=== PATIENT | female | born 1990 | race Hispanic/Latino ===

== ENCOUNTER 2017-11-26 18:53 | Emergency (ER) | payer SELFPAY ==
[2017-11-26 19:48] LABS: Urine Amorphous Sediment 2+ /HPF (NONE SEEN); Urine Bacteria 20-50 /HPF (<20); Urine Culture Reflex Order REFLEXED; Urine Mucus 2+ /HPF (NONE SEEN); Urine RBC <5 /HPF (NONE SEEN)
[2017-11-26 19:48] LABS: Urine Blood NEGATIVE (NEG); Urine Glucose NEGATIVE (NEG); Urine Protein 1+ (NEG)
--- NOTE | 2017-11-26 20:39 | ER ---
Nurse's Notes [facility] Name: Tracy Gannon Age: 27 yrs Sex: Female : 1990 Arrival Date: 11/26/2017 Time: 18:57 Bed 6 Private MD: Diagnosis: Vaginitis, vulvitis and vulvovaginitis in diseases classified elsewhere;Cystitis Presentation: 11/26 19:07 Presenting complaint: Patient states: Vaginal discharge x 3 days, states smell getting lp1 worse; Denies any bleeding; Denies any pain with urination, frequency. Transition of care: patient was not received from another setting of care. Onset of symptoms was November 23, 2017. Care prior to arrival: None. 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 - Social history:: Smoking status: Patient/guardian denies using tobacco. Screenin:10 Abuse screen: Denies threats or abuse. Denies injuries from another. Nutritional lp1 screening: No deficits noted. Tuberculosis screening: No symptoms or risk factors identified. Fall Risk None identified. Assessment: 19:35 General: Appears in no apparent distress. uncomfortable, Behavior is cooperative, bs1 anxious. Pain: Denies pain. 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 Gait is steady, Speech is normal, Facial symmetry appears normal, Pupils are PERRLA. Cardiovascular: Denies chest pain, palpitations, shortness of breath, Heart tones S1 S2 present Capillary refill < 3 seconds Patient's skin is warm and dry. Respiratory: Airway is patent Trachea midline Respiratory effort is even, unlabored, Respiratory pattern is regular, symmetrical, Breath sounds are clear bilaterally. GI: Abdomen is round Bowel sounds present X 4 quads. Abd is soft and non tender X 4 quads. : Reports discharge, white, w/ foul odor. EENT: No deficits noted. No signs and/or symptoms were reported regarding the EENT system. Derm: No deficits noted. No signs and/or symptoms reported regarding the dermatologic system. Musculoskeletal: Circulation, motion, and sensation intact. Capillary refill < 3 seconds, Range of motion: intact in all extremities. 20:35 Reassessment: Patient appears in no apparent distress at this time. Patient and/or bs1 family updated on plan of care and expected duration. Pain level reassessed. Patient is alert, oriented x 3, equal unlabored respirations, skin warm/dry/pink. Vital Signs: 19:09 BP 138 / 83; Pulse 92; Resp 16; Temp 98.5(O); Pulse Ox 100% on R/A; Weight 63.05 kg; lp1 Height 5 ft. 2 in. (157.48 cm); Pain 0/10; 19:53 BP 113 / 73; Pulse 87; Resp 17; Pulse Ox 99% on R/A; Pain 0/10; bs1 19:09 Body Mass Index 25.42 (63.05 kg, 157.48 cm) lp1 ED Course: 18:57 Patient arrived in ED. rg4 19:08 Triage completed. lp1 19:08 Arm band placed on right wrist. lp1 19:10 Lj Centeno MD is Attending Physician. 19:14 Chandrika Trejo, GAEL is Primary Nurse. bs1 19:38 Patient has correct armband on for positive identification. Bed in low position. Call bs1 light in reach. Side rails up X 1. Pulse ox on. NIBP on. 19:38 No provider procedures requiring assistance completed. Patient did not have IV access bs1 during this emergency room visit. Administered Medications: No medications were administered Outcome: 20:39 Discharge ordered by . gs 20:50 Discharged to home ambulatory, with friend. bs1 20:50 Condition: stable 20:50 Discharge instructions given to patient, Instructed on discharge instructions, follow up and referral plans. medication usage, Demonstrated understanding of instructions, follow-up care, medications, Prescriptions given X 1, Macrobid, Patient understands to follow up with obgyn tomorrow. 20:52 Patient left the ED. bs1 Addendum: 12/01/2017 18:40 Addendum: Culture Results: Positive urine culture. Bacteria is resistant to, has i w intermediate sensitivity, or is not tested against prescribed antibiotics. 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 Phone call Attempt #1 pt did not answer, left voice mail. 18:47 Addendum: Culture Results: Phone call Attempt #2 pt called back, is now asymptomatic i w and has f/u appt on . Signatures: Avelina Peralta, RN RN iw Viviana Yousif, RN RN lp1 Lynnette Pierce rg4 Lj Centeno MD MD Chandrika Trejo RN RN bs1
--- NOTE | 2017-11-26 20:39 | EDPHYS ---
Physician Documentation [facility] Name: Tracy Gannon Age: 27 yrs Sex: Female : 1990 Arrival Date: 11/26/2017 Time: 18:57 Bed 6 Private MD: ED Physician Lj Centeno HPI: 11/26 20:33 This 27 yrs old Female presents to ER via Ambulatory with complaints of gs Vaginal Discharge, 13 WKS . 20:33 The patient presents with vaginal discharge, that is white discharge. Onset: The gs symptoms/episode began/occurred 3 day(s) ago. Modifying factors: The symptoms are alleviated by nothing, the symptoms are aggravated by nothing. Associated signs and symptoms: Pertinent negatives: cramping, dyspareunia, fever, vaginal bleeding, vaginal discharge. Severity of symptoms: At their worst the symptoms were mild, in the emergency department the symptoms are unchanged. 13 weeks preg, had appt today for same with OB chose not to make appt, her for eval. 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 - Social history:: Smoking status: Patient/guardian denies using tobacco. ROS: 20:33 All other systems are negative. gs Exam: 20:33 Head/Face: Normocephalic, atraumatic. Eyes: Pupils equal round and reactive to light, gs extra-ocular motions intact. Lids and lashes normal. Conjunctiva and sclera are non-icteric and not injected. Cornea within normal limits. Periorbital areas with no swelling, redness, or edema. ENT: Nares patent. No nasal discharge, no septal abnormalities noted. Tympanic membranes are normal and external auditory canals are clear. Oropharynx with no redness, swelling, or masses, exudates, or evidence of obstruction, uvula midline. Mucous membranes moist. Neck: Trachea midline, no thyromegaly or masses palpated, and no cervical lymphadenopathy. Supple, full range of motion without nuchal rigidity, or vertebral point tenderness. No Meningismus. Chest/axilla: Normal chest wall appearance and motion. Nontender with no deformity. No lesions are appreciated. Cardiovascular: Regular rate and rhythm with a normal S1 and S2. No gallops, murmurs, or rubs. Normal PMI, no JVD. No pulse deficits. Respiratory: Lungs have equal breath sounds bilaterally, clear to auscultation and percussion. No rales, rhonchi or wheezes noted. No increased work of breathing, no retractions or nasal flaring. Abdomen/GI: Soft, non-tender, with normal bowel sounds. No distension or tympany. No guarding or rebound. No evidence of tenderness throughout. Back: No spinal tenderness. No costovertebral tenderness. Full range of motion. Skin: Warm, dry with normal turgor. Normal color with no rashes, no lesions, and no evidence of cellulitis. MS/ Extremity: Pulses equal, no cyanosis. Neurovascular intact. Full, normal range of motion. Neuro: Awake and alert, GCS 15, oriented to person, place, time, and situation. Cranial nerves II-XII grossly intact. Motor strength 5/5 in all extremities. Sensory grossly intact. Cerebellar exam normal. Normal gait. 20:33 Constitutional: The patient appears alert, awake. Vital Signs: 19:09 BP 138 / 83; Pulse 92; Resp 16; Temp 98.5(O); Pulse Ox 100% on R/A; Weight 63.05 kg; lp1 Height 5 ft. 2 in. (157.48 cm); Pain 0/10; 19:53 BP 113 / 73; Pulse 87; Resp 17; Pulse Ox 99% on R/A; Pain 0/10; bs1 19:09 Body Mass Index 25.42 (63.05 kg, 157.48 cm) lp1 MDM: 19:22 Patient medically screened. gs 20:33 Differential diagnosis: urinary tract infection, vaginitis. Data reviewed: vital signs, gs nurses notes. Response to treatment: There is no appreciated change of the patient's symptoms at this time. ED course: spoke with l and d resident at [facility] chad has called [facility] will call tomorrow for appt tomorrow will treat uti. 11/26 19:23 Order name: Urine Microscopic Only; Complete Time: 20:32 11/26 19:33 Order name: Urine Dipstick--Ancillary (enter results); Complete Time: 20:32 [facility] 11/26 19:23 Order name: Urine Test (obtain specimen); Complete Time: 19:31 11/26 19:23 Order name: Urine Dipstick-Ancillary (obtain specimen); Complete Time: 19:31 11/26 19:33 Order name: Urine --Ancillary (enter results); Complete Time: 20:32 [facility] 11/26 19:50 Order name: Urine Culture EDMS Administered Medications: No medications were administered Disposition: 11/26/17 20:39 Discharged to Home. Impression: Vaginitis, vulvitis and vulvovaginitis in diseases classified elsewhere, Cystitis. - Condition is Stable. - Discharge Instructions: Urinary Tract Infection. - Prescriptions for Macrobid 100 mg Oral Capsule - take 1 capsule by ORAL route every 12 hours for 5 days; 10 capsule. - Medication Reconciliation Form, Thank You Letter, Antibiotic Education, Prescription Opioid Use, Work release form form. - Follow up: Private Physician; When: Tomorrow; Reason: Re-evaluation by your physician. Signatures: Dispatcher [employer] EDMS Viviana Yousif RN RN lp1 Lj Centeno MD MD gs Salazar, Brittany RN RN bs1
[2017-11-26 20:56] VITALS: TEMP 98.5
[2017-11-26 20:57] VITALS: BP 113/73; O2SAT 99
== END 2017-11-26 20:52 | disposition home or self-care (01) ==
LOC: ER 18:53
DX: O23.11 Infections of bladder in pregnancy, first trimester (principal); Z3A.13 13 weeks gestation of pregnancy
CPT/HCPCS: 81003; 81015; 81025; 87077; 87086; 87088; 87186; 99283

== ENCOUNTER 2018-04-19 01:22 | Emergency (ER) | payer SELFPAY ==
[2018-04-19 01:59] LABS: Absolute Lymphocytes (CBC) 2.2 K/uL (0.7-4.9); Absolute Monocytes 0.9 K/uL (0.1-1.3); Absolute Neutrophil 5.4 K/uL (1.8-8.0); Basophils % 0.3 % (0-1.3); Eosinophils % 1.2 % (0-4.4); Hematocrit 27.7 % (36.0-45.0); Lymphocytes % 25.7 % (15.3-44.8); MCH 24.2 pg (27.0-35.0); MCV 74.9 fL (80-100); MPV 9.5 fL (7.6-11.3); Monocytes % 10.1 % (3.3-12.3)
[2018-04-19 02:11] LABS: BUN Blood Urea Nitrogen 8 mg/dL (7-18); Bicarbonate 24 mmol/L (21-32); Glucose Level 109 mg/dL (74-106); Potassium 3.3 mmol/L (3.5-5.1); Sodium Level 141 mmol/L (136-145)
[2018-04-19 02:16] LABS: Urine Bacteria <20 /HPF (<20); Urine RBC NONE SEEN /HPF (NONE SEEN)
[2018-04-19 02:17] LABS: Urine Amorphous Sediment 1+ /HPF (NONE SEEN); Urine Culture Reflex Order NOT NEEDED; Urine Mucus LIGHT /HPF (NONE SEEN)
--- NOTE | 2018-04-19 02:26 | EDPHYS ---
Physician Documentation [facility] Name: Tracy Gannon Age: 28 yrs Sex: Female : 1990 Arrival Date: 04/19/2018 Time: 01:23 Bed 5 Private MD: ED Physician Jaxon Thomas HPI: 04/19 01:41 This 28 yrs old Female presents to ER via Ambulatory with complaints of rn Breathing Difficulty. 01:41 The patient has shortness of breath at rest. Onset: The symptoms/episode began/occurred rn 3 hour(s) ago. Duration: The symptoms are intermittent. The patient's shortness of breath is aggravated by light activity, sitting upright. Severity of symptoms: At their worst the symptoms were mild in the emergency department the symptoms are unchanged. The patient has not experienced similar symptoms in the past. Reports 8 months , woke up tonight with sob, has never happened to her before, no fever/cough/chest pain/pleuritic pain, worse when sits up, feels like can't take deep enough breath, no abd pain, no bleeding. . 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 - Social history:: Smoking status: Patient/guardian denies using tobacco, Patient/guardian denies using alcohol, street drugs. - Ebola Screening: : Patient negative for fever greater than or equal to 101.5 degrees Fahrenheit, and additional compatible Ebola Virus Disease symptoms Patient denies exposure to infectious person Patient denies travel to an Ebola-affected area in the 21 days before illness onset. - Family history:: not pertinent. - Hospitalizations: : No recent hospitalization is reported. ROS: 01:41 Constitutional: Negative for fever, chills, and weight loss, Eyes: Negative for injury, rn pain, redness, and discharge, Neck: Negative for injury, pain, and swelling, Cardiovascular: Negative for chest pain, palpitations, and edema, Respiratory: + sob, neg for cough/hemoptysis/pleuritic pain Abdomen/GI: Negative for abdominal pain, nausea, vomiting, diarrhea, and constipation, MS/Extremity: Negative for injury and deformity, Skin: Negative for injury, rash, and discoloration, Neuro: Negative for headache, weakness, numbness, tingling, and seizure. Exam: 01:41 Constitutional: This is a well developed, well nourished patient who is awake, alert, rn and in no acute distress. Walked to room from triage without distress, smiling and texting on phone. Head/Face: Normocephalic, atraumatic. Eyes: Pupils equal round and reactive to light, extra-ocular motions intact. Lids and lashes normal. Conjunctiva and sclera are non-icteric and not injected. Cornea within normal limits. Periorbital areas with no swelling, redness, or edema. ENT: MMM, no stridor Cardiovascular: Regular rate and rhythm with a normal S1 and S2. No gallops, murmurs, or rubs. Normal PMI, no JVD. No pulse deficits. Respiratory: Lungs have equal breath sounds bilaterally, clear to auscultation and percussion. No rales, rhonchi or wheezes noted. No increased work of breathing, no retractions or nasal flaring. Abdomen/GI: pregnany abdomen, nontender Skin: Warm, dry with normal turgor. Normal color with no rashes, no lesions, and no evidence of cellulitis. MS/ Extremity: Pulses equal, no cyanosis. Neurovascular intact. Full, normal range of motion. Equal circumference. Neuro: Awake and alert, GCS 15, oriented to person, place, time, and situation. Cranial nerves II-XII grossly intact. Motor strength 5/5 in all extremities. Sensory grossly intact. Cerebellar exam normal. Normal gait. 01:52 ECG was reviewed by the Attending Physician. rn Vital Signs: 01:36 BP 112 / 77; Pulse 90; Resp 12; Temp 98.4(O); Pulse Ox 100% on R/A; Weight 65.77 kg ao (R); Height 5 ft. 2 in. (157.48 cm) (R); Pain 2/10; 02:13 BP 111 / 72; Pulse 90; Pulse Ox 98% on R/A; ak1 01:36 Body Mass Index 26.52 (65.77 kg, 157.48 cm) ao MDM: 01:26 Patient medically screened. rn 02:20 Differential diagnosis: Anemia Anxiety Reaction pneumonia, Pneumothorax reactive airway rn disease. Data reviewed: vital signs, nurses notes, lab test result(s), EKG, radiologic studies, plain films, and as a result, I will discharge patient. Counseling: I had a detailed discussion with the patient and/or guardian regarding: the historical points, exam findings, and any diagnostic results supporting the discharge/admit diagnosis, lab results, radiology results, the need for outpatient follow up, to return to the emergency department if symptoms worsen or persist or if there are any questions or concerns that arise at home. Response to treatment: the patient's symptoms have mildly improved after treatment, and as a result, I will discharge patient. Special discussion: I discussed with the patient/guardian in detail that at this point there is no indication for admission to the hospital. It is understood, however, that if the symptoms persist or worsen the patient needs to return immediately for re-evaluation. ED course: Pt with slightly decreased hemoglobin, may combine with enlarged uterus and causing relative dyspnea, oxygen 100%, speaking full sentences, not tachycardic, normal trop and ECG.. 04/19 01:40 Order name: CBC with Diff; Complete Time: 02:05 04/19 01:40 Order name: Basic Metabolic Panel; Complete Time: 02:17 04/19 01:40 Order name: EKG; Complete Time: 01:41 04/19 01:40 Order name: Urine Microscopic Only; Complete Time: 02:17 04/19 01:40 Order name: XRAY Chest (1 view) 04/19 02:19 Order name: Urine Dipstick--Ancillary (enter results) ne 04/19 01:40 Order name: IV Start; Complete Time: 01:48 04/19 01:40 Order name: EKG - Nurse/Tech; Complete Time: 01:48 04/19 01:40 Order name: Urine Dipstick-Ancillary (obtain specimen); Complete Time: 01:40 rn EC:52 Rate is 92 beats/min. Rhythm is regular. QRS Sawyer is Normal. WI interval is normal. QRS rn interval is normal. QT interval is normal. No Q waves. T waves are Normal. No ST changes noted. Clinical impression: Normal ECG. Interpreted by me. Administered Medications: No medications were administered Disposition: 04/19/18 02:25 Discharged to Home. Impression: Dyspnea, unspecified, Anemia complicating , third trimester. - Condition is Stable. - Discharge Instructions: Anemia, Nonspecific, Shortness of Breath, Third Trimester of , [id number]. - Medication Reconciliation Form, Thank You Letter, Antibiotic Education, Prescription Opioid Use, Work release form form. - Follow up: Private Physician; When: As needed; Reason: Recheck today's complaints, Re-evaluation by your physician. - Problem is new. - Symptoms have improved. Signatures: Dispatcher [employer] EDMS Jaxon Thomas MD MD rn Krenek, Amber RN RN ak1 Henrik Newsome RN RN ao Corrections: (The following items were deleted from the chart) 02:41 02:25 04/19/2018 02:25 Discharged to Home. Impression: Dyspnea, unspecified; Anemia ak1 complicating , third trimester. Condition is Stable. Discharge Instructions: Anemia, Nonspecific, Shortness of Breath, Third Trimester of , [id number]. Forms are Medication Reconciliation Form, Thank You Letter, Antibiotic Education, Prescription Opioid Use. Follow up: Private Physician; When: As needed; Reason: Recheck today's complaints, Re-evaluation by your physician. Problem is new. Symptoms have improved. rn
--- NOTE | 2018-04-19 02:26 | ER ---
Nurse's Notes [facility] Name: Tracy Gannon Age: 28 yrs Sex: Female : 1990 Arrival Date: 04/19/2018 Time: 01:23 Bed 5 Private MD: Diagnosis: Dyspnea, unspecified;Anemia complicating , third trimester Presentation: 04/19 01:33 Presenting complaint: Patient states: Difficulty breathing for the past three hours. ao Patient is about 33 weeks . Patient report never had this problem with previous pregnancies. Patient reports 2/10 pain in her right rib cage. Transition of care: patient was not received from another setting of care. Onset of symptoms was April 18, 2018 at 22:00. Risk Assessment: Do you want to hurt yourself or someone else? Patient reports no desire to harm self or others. Initial Sepsis Screen: Does the patient meet any 2 criteria? No. Patient's initial sepsis screen is negative. Does the patient have a suspected source of infection? No. Patient's initial sepsis screen is negative. Care prior to arrival: None. 01:33 Method Of Arrival: Ambulatory ao 01:33 Acuity: TERESA 3 ao Triage Assessment: 01:40 General: Appears in no apparent distress. comfortable, Behavior is calm, cooperative, ao appropriate for age. Respiratory: Reports shortness of breath Onset: The symptoms/episode began/occurred just prior to arrival, the patient has moderate shortness of breath. 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 - Social history:: Smoking status: Patient/guardian denies using tobacco, Patient/guardian denies using alcohol, street drugs. - Ebola Screening: : Patient negative for fever greater than or equal to 101.5 degrees Fahrenheit, and additional compatible Ebola Virus Disease symptoms Patient denies exposure to infectious person Patient denies travel to an Ebola-affected area in the 21 days before illness onset. - Family history:: not pertinent. - Hospitalizations: : No recent hospitalization is reported. Screenin:40 Abuse screen: Denies threats or abuse. Denies injuries from another. Nutritional ao screening: No deficits noted. Tuberculosis screening: No symptoms or risk factors identified. Fall Risk None identified. Assessment: 01:38 General: Appears in no apparent distress. comfortable, Behavior is calm, cooperative, ao appropriate for age. Pain: Complains of pain in right rib cage Pain currently is 2 out of 10 on a pain scale. Neuro: Level of Consciousness is awake, alert, obeys commands, Oriented to person, place, time, situation, Appropriate for age Moves all extremities. Full function Speech is normal, Facial symmetry appears normal. Cardiovascular: Capillary refill < 3 seconds Patient's skin is warm and dry. Rhythm is regular. Respiratory: Airway is patent Respiratory effort is even, unlabored, Respiratory pattern is regular, symmetrical, Breath sounds are clear bilaterally. GI: Abdomen is Patient . : No signs and/or symptoms were reported regarding the genitourinary system. EENT: No signs and/or symptoms were reported regarding the EENT system. Derm: Skin is intact, Skin is pink, warm \T\ dry. normal, Skin temperature is warm. Musculoskeletal: No signs and/or symptoms reported regarding the musculoskeletal system. Vital Signs: 01:36 BP 112 / 77; Pulse 90; Resp 12; Temp 98.4(O); Pulse Ox 100% on R/A; Weight 65.77 kg ao (R); Height 5 ft. 2 in. (157.48 cm) (R); Pain 2/10; 02:13 BP 111 / 72; Pulse 90; Pulse Ox 98% on R/A; ak1 01:36 Body Mass Index 26.52 (65.77 kg, 157.48 cm) ao ED Course: 01:23 Patient arrived in ED. es 01:24 Henrik Newsome, RN is Primary Nurse. ao 01:26 Jaxon Thomas MD is Attending Physician. rn 01:36 Triage completed. ao 01:37 Arm band placed on right wrist. Patient placed in an exam room, on a stretcher, on ao pulse oximetry, Patient notified of wait time. 01:40 Patient has correct armband on for positive identification. Pulse ox on. NIBP on. ao 01:45 Inserted saline lock: 20 gauge in right antecubital area, using aseptic technique. ao 02:00 X-ray completed. Portable x-ray completed in exam room. Patient tolerated procedure kw well. 02:00 XRAY Chest (1 view) In Process Unspecified. EDMS 02:33 No provider procedures requiring assistance completed. IV discontinued, intact, ak1 bleeding controlled, No redness/swelling at site. Pressure dressing applied. Administered Medications: No medications were administered Outcome: 02:25 Discharge ordered by . rn 02:33 Discharged to home ambulatory, with family. ak1 02:33 Condition: good 02:33 Discharge instructions given to patient, family, Instructed on discharge instructions, follow up and referral plans. Demonstrated understanding of instructions, follow-up care. 02:41 Patient left the ED. ak1 Signatures: Dispatcher [employer] EDMalina Judge Roman, MD MD rn Whitley, Kimberlee kw Krenek, Amber RN RN ak1 Henrik Newsome RN RN ao
[2018-04-19 02:47] VITALS: TEMP 98.4
[2018-04-19 02:48] VITALS: BP 111/72; O2SAT 98
[2018-04-19 03:09] LABS: Urine Blood NEGATIVE (NEG); Urine Glucose NEGATIVE (NEG); Urine Protein NEGATIVE (NEG)
--- NOTE | 2018-04-19 08:00 | RAD REPORT ---
EXAM DESCRIPTION: RAD - Chest Single View - 04/19/2018 2:00 am CLINICAL HISTORY: Shortness of breath, difficulty breathing COMPARISON: None. TECHNIQUE: AP portable chest image was obtained 0148 hours . FINDINGS: Lungs are clear. Heart and vasculature are normal. No measurable pleural effusion and no p neumothorax. No gross bony abnormality seen. No acute aortic findings suspected. IMPRESSION: No acute cardiopulmonary process.
--- NOTE | 2018-04-19 09:39 | EKG ---
Test Date: 2018-04-19 Test Time: 01:43:07 Stock Plan Administrator: SHANNON MEASUREMENT RESULTS: Intervals: Rate: 92 WA: 144 QRSD: 76 QT: 340 QTc: 420 [place]: P: 21 WA: 144 QRS: 7 T: 0 INTERPRETIVE STATEMENTS: Normal sinus rhythm Normal ECG No previous ECG available for comparison Electronically Signed On 04-19-18 09:38:20 CDT by Jose Maharaj
== END 2018-04-19 02:41 | disposition home or self-care (01) ==
LOC: ER 01:22
DX: O99.013 Anemia complicating pregnancy, third trimester (principal); D64.9 Anemia, unspecified
CPT/HCPCS: 36415; 71045; 80048; 81003; 81015; 85025; 93005; 99283